=== PATIENT | female | born 1950 | race Caucasian/White ===

== ENCOUNTER → 2017-05-31 | Outpatient (CLI) | payer OTHER | LOC: FIMAGING 09:06 | PROVIDERS: ATTEND Family Medicine | DX: Z12.31 Encounter for screening mammogram for malignant neoplasm of breast (principal); Z80.3 Family history of malignant neoplasm of breast | CPT/HCPCS: G0202 ==

== ENCOUNTER → 2017-06-29 | Outpatient (CLI) | payer OTHER | LOC: FIMAGING 11:42 | PROVIDERS: ATTEND Family Medicine | DX: R60.0 Localized edema (principal); I88.9 Nonspecific lymphadenitis, unspecified ==

== ENCOUNTER → 2017-12-22 | Outpatient (CLI) | payer OTHER ==
[~2017-12-22] MED LIST: DEPO METHYLPREDNISOLONE 40 MG/ML SDV ONE; DEPO METHYLPREDNISOLONE 80 MG/ML SDV ONE; IOPAMIDOL (ISOVUE 370) 100 ML BTL IV ONE; LIDOCAINE 1% 300 MG/30 ML SDV ONE; ROPIVACAINE HCL 150 MG/30 ML INJ ONE
== END ==
LOC: FIMAGING 10:26
PROVIDERS: ATTEND Orthopaedic Surgery
PROC: 3E0U33Z Introduction of Anti-inflammatory into Joints, Percutaneous Approach (ICD-10-PCS; principal; 2017-12-22)
PROC: 3E0U3BZ Introduction of Anesthetic Agent into Joints, Percutaneous Approach (ICD-10-PCS; principal; 2017-12-22)
DX: M25.551 Pain in right hip (principal)
CPT/HCPCS: 20610; J1040; J2795; Q9967; J1030

== ENCOUNTER → 2018-05-04 | Outpatient (CLI) | payer OTHER | LOC: FIMAGING 10:17 | PROVIDERS: ATTEND Orthopaedic Surgery | PROC: 3E0U33Z Introduction of Anti-inflammatory into Joints, Percutaneous Approach (ICD-10-PCS; principal; 2018-05-04) | DX: M16.11 Unilateral primary osteoarthritis, right hip (principal) | CPT/HCPCS: 20610; 77002; J1040; J2795; Q9967; J1030 ==

== ENCOUNTER → 2018-05-31 | Outpatient (CLI) | payer OTHER | LOC: FIMAGING 13:07 | PROVIDERS: ATTEND Family Medicine | DX: Z12.31 Encounter for screening mammogram for malignant neoplasm of breast (principal); Z80.3 Family history of malignant neoplasm of breast ==

== ENCOUNTER 2018-08-09 05:36 | Inpatient (IN) | payer OTHER ==
[2018-08-09] MEDS ORDERED: DEXAMETHASONE 4 MG/ML VIAL IVP ONE (05:52)
[2018-08-09] MEDS ORDERED: FAMOTIDINE 20 MG TAB PO ONE (05:52)
[2018-08-09] MEDS ORDERED: ceFAZolin 2 GM/DEXTROSE 100 ML IV ONE (05:52)
[2018-08-09] MEDS ORDERED: ONDANSETRON 4 MG/2 ML VIAL IVP ONE (05:52)
[2018-08-09] MEDS ORDERED: GABAPENTIN 300 MG CAP PO ONE (05:52)
[2018-08-09] MEDS ORDERED: ACETAMINOPHEN 325 MG TAB PO ONE (05:52)
[2018-08-09] MEDS ORDERED: LIDOCAINE 1% 2 ML INJ ID PRN (05:53)
[2018-08-09] MEDS ORDERED: LR 1,000 ML IV ONE (05:53)
[2018-08-09] MEDS ORDERED: TRANEXAMIC ACID 1,000 MG in NS 100 ML IV ONE (06:00)
[2018-08-09] MEDS ORDERED: ROPIVACAINE 0.2% 80 MG, EPINEPHrine 0.2 MG, KETOROLAC TROMETHAMINE 30 MG in SYRINGE 0 ML IU ONE (06:00)
[2018-08-09] MEDS ORDERED: TRANEXAMIC ACID 3,000 MG in NS (SYRINGE) 50 ML IRR ONE (06:00)
[2018-08-09] MEDS ORDERED: POVIDONE-IODINE 20 ML in SODIUM CL IRRIG SOLUTION 500 ML IRR ONE (06:00)
[2018-08-09] MEDS ORDERED: ceFAZolin 1 GM/5 ML SYR ONE (06:55)
[2018-08-09] MEDS ORDERED: TRANEXAMIC ACID 3,000 MG/50 ML BAG IRR ONE (06:55)
[2018-08-09] MEDS ORDERED: MIDAZOLAM 2 MG/2 ML VIAL ONE (07:01)
--- NOTE | 2018-08-09 07:04 | PDHPUP ---
History & Physical Update H&P update statement: This history and physical update is based on an assessment of the patient which was completed after admission or registration (within 24 hours), but prior to the surgery/procedure. H&P update: H&P reviewed & patient examined
[2018-08-09] MEDS ORDERED: MIDAZOLAM 2 MG/2 ML VIAL IVP ONE (07:13)
--- NOTE | 2018-08-09 07:13 | PDANEPAE ---
ANE History of Present Illness Right hip DJD, here for R RAKESH ANE Past Medical History - Cardiovascular History Hx Hypertension: No Hx Arrhythmias: No Hx Chest Pain: No Hx Coronary Artery / Peripheral Vascular Disease: No Hx CHF / Valvular Disease: No Hx Palpitations: No - Pulmonary History Hx COPD: No Hx Asthma/Reactive Airway Disease: No Hx Recent Upper Respiratory Infection: No Hx Oxygen in Use at Home: No Hx Sleep Apnea: No Sleep Apnea Screening Result - Last Documented: Negative - Neurologic History Hx Cerebrovascular Accident: No Hx Seizures: No Hx Dementia: No - Endocrine History Hx Diabetes: No - Renal History Hx Renal Disorders: No - Liver History Hx Hepatic Disorders: No - Neurological & Psychiatric Hx Hx Neurological and Psychiatric Disorders: No - Cancer History Hx Cancer: Yes 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 arthritis, has taken celebrex for about 18 years. wears glasses - Chronic Pain History Chronic Pain: Yes (right hip area, left ankle) - Surgical History Prior Surgeries: MOHS procedure on face. pelvic fx repair. right femur fx repair. left arm fx repair. ankle surgery, left. surgery to remove screws from ankle and breezy from hip. cholecystectomy. tubal ligation ANE Review of Systems Review of Systems: - Exercise capacity METS (RN): 4 METS ANE Patient History - Allergies Allergies/Adverse Reactions: No Known Allergies Allergy (Verified 08/01/18 11:17) - Home Medications Home Medications: Acetaminophen [Tylenol ES 500 mg (*)] 2,500 mg PO DAILY PRN 08/01/18 [Last Taken 08/08/18 06:00] Herbals/Supplements -Info Only 1 ea PO DAILY 08/01/18 [Last Taken 07/31/18] celeCOXIB [Celebrex (*)] 200 mg PO BID 08/01/18 [Last Taken 08/08/18 18:30] - Smoking Hx Smoking Status: Never smoked - Family Anes Hx Family Hx Anesthesia Complications: none ANE Labs/Vital Signs - Vital Signs Height: 157.48 cm Weight: 88.451 kg ANE Physical Exam - Airway Neck exam: FROM Mallampati Score: Class 2 Mouth exam: normal dental/mouth exam - Pulmonary Pulmonary: no respiratory distress - Cardiovascular Cardiovascular: regular rate and rhythym - ASA Status ASA Status: I ANE Anesthesia Plan Anesthesia Plan: MAC, spinal
[2018-08-09] MEDS ORDERED: LIDOCAINE 2% 5 ML SDV ONE (07:18)
[2018-08-09] MEDS ORDERED: fentaNYL 100 MCG/2 ML INJ ONE ×2 (07:18→09:48)
[2018-08-09] MEDS ORDERED: BUPIVACAINE/DEXTROSE 7.5MG/ML 2 ML SPINAL AMP SP ONE (07:18)
[2018-08-09] MEDS ORDERED: PROPOFOL/EMULSION 500 MG/50 ML BOTTLE IV ONE ×2 (07:18→08:26)
--- NOTE | 2018-08-09 09:32 | POSTOPPROG ---
Post Op Note Date of Operation: 08/09/18 Surgeon: Ye Ordoñez Pump Runner: Fozia Anesthesiologist: Maribell Anesthesia: GET(General Endotracheal), Spinal Post-op Diagnosis: Right hip severe degenerative arthritis Procedure: Right total hip arthroplasty Inf/Abcess present in the surg proc area at time of surgery?: No EBL: [id number]
[2018-08-09] MEDS ORDERED: PROMETHAZINE HCL 25 MG/ML INJ IVP PRN (09:39)
[2018-08-09] MEDS ORDERED: DIPHENOXYLATE/ATROPINE LOMOTIL 1 TAB PO PRN (09:39)
[2018-08-09] MEDS ORDERED: POLYETHYLENE GLYCOL 3350 17 GM PKT PO PRN (09:39)
[2018-08-09] MEDS ORDERED: BISACODYL 10 MG SUPP PR PRN (09:39)
[2018-08-09] MEDS ORDERED: METOCLOPRAMIDE 10 MG/2 ML VIAL IVP PRN (09:39)
[2018-08-09] MEDS ORDERED: ONDANSETRON 4 MG/2 ML VIAL IVP PRN (09:39)
[2018-08-09] MEDS ORDERED: PROMETHAZINE HCL 25 MG SUPPR PR PRN (09:39)
[2018-08-09] MEDS ORDERED: NS 500 ML IV PRN (09:39)
[2018-08-09] MEDS ORDERED: MAGNESIUM HYDROXIDE 30 ML UDCUP PO PRN (09:39)
[2018-08-09] MEDS ORDERED: CYCLOBENZAPRINE 10 MG TAB PO PRN (09:39)
[2018-08-09] MEDS ORDERED: diphenhydrAMINE 25 MG CAP PO PRN (09:39)
[2018-08-09] MEDS ORDERED: ONDANSETRON DISINTEGRATING 4 MG TAB PO PRN (09:39)
[2018-08-09] MEDS ORDERED: TEMAZEPAM 15 MG CAP PO PRN (09:39)
[2018-08-09] MEDS ORDERED: LACTULOSE 20 GM/30 ML UDCUP PO PRN (09:39)
[2018-08-09] MEDS ORDERED: MEPERIDINE 25 MG/0.5 ML AMP IVP PRN (09:48)
[2018-08-09] MEDS ORDERED: LR 500 ML IV PRN (09:48)
[2018-08-09] MEDS ORDERED: NALOXONE HCL 0.4 MG/ML INJ IVP PRN (09:48)
[2018-08-09] MEDS: fentaNYL 100 MCG/2 ML INJ IVP PRN ×4 (09:50→10:06)
--- NOTE | 2018-08-09 09:50 | POSTANESTH ---
Post Anesthetic Evaluation Cardiovascular Status: Normal, Stable Respiratory Status: Normal, Stable Level of Consciousness/Mental Status: Can Participate in Eval Pain Control: Adequate, Prn Tx Ordered Nausea/Vomiting Control: Adequate, Prn Tx Ordered Complications Possibly Related to Anesthesia: None Noted (moving bilateral lower extrem, complianing of pain on presentation in PACU that was easily controlled with standard orders. Spinal largely left sided and converted to GA with LMA without complicaiton as documented in anesthetic record)
[2018-08-09] MEDS ORDERED: LR 1,000 ML IV SCH (10:00)
[2018-08-09] MEDS ORDERED: HYDROmorphONE/DILAUDID 2 MG/ML INJ ONE (10:14)
[2018-08-09] MEDS: HYDROmorphONE/DILAUDID 2 MG/ML INJ IVP PRN ×2 (10:17→10:30)
--- NOTE | 2018-08-09 10:37 | GOP ---
DATE OF OPERATION: 08/09/2018 SURGEON: Ye Ordoñez MD VENEER STAPLER: LEYDA Ocampo. Manny Perez CFA. ANESTHESIA: An attempted spinal anesthetic followed by general anesthesia. ANESTHESIOLOGIST: Tami Renya DO. PREOPERATIVE DIAGNOSIS: 1. Right hip severe degenerative arthritis. 2. Obesity. POSTOPERATIVE DIAGNOSIS: 1. Right hip severe degenerative arthritis. 2. Obesity. PROCEDURE PERFORMED: A right total hip arthroplasty. FINDINGS: DESCRIPTION OF PROCEDURE: The patient was given 2 g of IV Ancef preoperatively within 60 minutes of surgery. She also received 1000 mg of IV tranexamic acid. She was placed on the operating room tabl e, and Dr. Reyna attempted spinal anesthesia. She ended up with an incomplete spinal and then had to have general anesthesia. A Lua catheter was not used. She wore a PAWEL stocking and SCD on the non operative leg. She was rolled to the left lateral decubitus position. The position was secured with the pegboard table attachment. An axillary roll was used, and all pressure points were carefully pa dded. She was very bulky around the hips and thighs and that made positioning difficult. I was care ful to lock her pelvis in a vertical position. Her perineum was isolated with plastic adhesive drape s. Her right hip and right lower extremity were prepped with ChloraPrep. They were draped free usin g sterile sheets, stockinette, and Ioban plastic drape. The [employer] time-out was performed to verify the correct surgical side and site and the correct patient identity. The [place] time-out was also performed. I made a 7-inch straight oblique posterolateral hip skin incision. She had had a previous intramedul gregor nail fixation of a right femoral shaft fracture 15 or 16 years ago. The hardware had been remov ed about 12 years ago. She had 2 incisions on the lateral hip and buttocks area. Neither one of the m were ideally positioned for the incision I needed for her total hip. I made a 3rd incision between the two. There was adequate skin bridge for the incision. Subcutaneous tissues were sharply divide d, and hemostasis was obtained using electrocautery. She had a 2-3 inch layer of subcutaneous fat. Her fascia wanda was identified and split along the axis of its fibers. I curved posteriorly and prox imally, and split the fascia of the gluteus radha and bluntly split the muscle fibers in line with their orientation. The Charnley self-retaining retractor was inserted. Her fascia wanda was quite ti ght. Her sciatic nerve was imbedded in some posterior scar tissue from her previous 2 operations. I was careful to protect that area, but I did not make any attempt to expose the nerve. The external rotators and the posterior hip capsule were scarred. I divided them as a combined layer at the base of the femoral neck. They were tagged and reflected posteriorly. The fluid within the hip joint loo ked normal. I took a culture of the fluid for aerobic and anaerobic organisms. A smooth 1/8-inch Steinmann pin was inserted vertically into the ilium, superior to the acetabulum. A 1/8-inch drill bit was inserted vertically into the greater trochanter and parallel to the first pi n. The distance between the two was measured for leg length reference. Her femoral head was dislocat ed posteriorly. Severe degenerative changes were present. The femoral neck was osteotomized at the appropriate level and inclination. I was careful to preserve all the posterior capsule and most of the anterior capsule. The remnant of her damaged labrum was excised. I prepared the femur first. This allowed me to professor of management the amount of natural femoral neck anteversion. This, in turn, later allowed me to determine the correct amount of cup anteversion. She had about 15 degrees of natural femoral neck anteversion. The canal was opened laterally with the box chisel. I broached sequentially up to a size 4. I used a Carlos Accolade II high offset broach as a trial stem. I was careful to lateralize adequately. Appropriate retractors were inserted to expose her acetabulum. The acetabulum was reamed sequentiall y to 53 mm. I selected the 54 mm Lansford Trident Tritanium cluster-hole hemispherical shell. This w as tapped securely into place in the proper degree of inclination anteversion. I used the transverse acetabular ligament and other acetabular bony landmarks to help me properly orient the cup. I performed a series of trial reductions to determine length and stability. I concluded that the siz e 4 stem with high offset with the -2.5 mm neck length and a 36 mm head gave me the proper combinatio n of appropriate length and good anterior and posterior stability. I took an intraoperative x-ray. Because of her size, it was difficult to get a good AP pelvis x-ray. However, I could see that there was good sizing and positioning of the acetabular component and femoral stem. Leg length looked darnell ropriate. I recognized that I was lengthening her by 2 or 3 mm. However, I felt this was necessary in order to achieve good stability. I then went back and put in a single 30 mm screw through the Tritanium shell. The 0 degree liner was then inserted and tapped securely into place. The Carlos Accolade II stem in a size 4 with high of fset was tapped securely into place and was a very tight fit. I did 1 final trial reduction and conf irmed that the -2.5 mm neck length with a 36 mm head was the proper combination. The Carlos Biolox Delta ceramic head with an outside diameter of 36 mm and a neck length of -2.5 mm was tapped securely onto the clean trunnion. Her acetabulum was irrigated and cleaned, and the hip was reduced 1 final time. She had excellent anterior and posterior stability. 40 mL of the joint anesthetic cocktail were injected into the capsule, the deep musculature, and subc utaneous tissues around the skin edges. The joint was thoroughly irrigated 1 final time with a dilut e Betadine solution. 50 cc of tranexamic acid solution was irrigated into the joint and left in plac e. The combined layer of external rotator and posterior hip capsule was repaired with #2 FiberWire sutur es through drill holes in the greater trochanter. Her external rotators and the capsule were quite s carred and thinned from her previous trauma and surgery. Her fascia wanda was closed first with 2 int errupted [id number] #2 FiberWire sutures followed by a running #2 barbed Ethicon Stratafix PDO s uture. Subcutaneous tissues were closed with a running 0 barbed Ethicon Stratafix Monoderm suture as well as interrupted 2-0 Monocryl sutures. The skin was closed with a running 3-0 barbed Ethicon Str atafix Monoderm subcuticular suture. The skin edges were reapproximated and sealed with Dermabond gl ue. The wound was covered with a large piece of waterproof sterile Mepilex surgical dressing. The s acral Mepilex dressing was also applied. A long leg PAWEL stocking and SCD were applied to the operative leg. She wore a stocking and SCD on th e opposite leg during the procedure. An abduction pillow was placed between her knees. She was awak ened from anesthesia and rolled to the supine position on her [facility]. She was taken to PACU in satisfactory condition. There were no recognized intraoperative complications. The estimated blood loss was about 400 mL. The sponge and needle count was correct on 2 occasions. T he surgery was complicated because of her size. I used a Lansford Tritanium Trident II hemispherical cluster-hole shell with an outside diameter of 54 mm. I inserted a single 30 mm supplemental screw. The liner was a Carlos 0-degree highly cross-li nked liner with an inside diameter of 36 mm. The femoral component was a press-fit Lansford high-offs et Accolade II stem and size 4. The femoral head was a Carlos Biolox Delta ceramic head with a -2.5 mm neck length and a 36 mm outside diameter. Arturo Verma and Manny Perez acted as surgical assistants. Their assistance was a medical necess ity for safe completion of the procedure. Copy requested to: LEYDA Thacker [facility] Manny Perez [facility] /[id number]/MODL
[2018-08-09] MEDS: oxyCODONE IR 5 MG TAB PO PRN ×3 (11:07→18:40)
--- NOTE | 2018-08-09 11:15 | PDMN ---
Medical Necessity Medical necessity: Pt meets IP criteria per and [facility] [place] [facility] S-560 (Hip Arthroplasty) ; Medicare IP only procedure.
[2018-08-09] MEDS: ACETAMINOPHEN 325 MG TAB PO SCH ×2 (12:03→17:44)
[2018-08-09] MEDS: KETOROLAC 15 MG/1 ML SDV IVP SCH ×2 (12:04→17:45)
[2018-08-09] MEDS: ceFAZolin 2 GM/DEXTROSE 100 ML IV SCH ×2 (14:45→21:21)
[2018-08-09] MEDS: ASPIRIN 325 MG TAB PO SCH (21:21)
[2018-08-09] MEDS: FAMOTIDINE 20 MG TAB PO SCH (21:21)
[2018-08-09] MEDS: SENNOSIDES/DOCUSATE SODIUM TAB PO SCH (21:21)
[2018-08-10] MEDS: KETOROLAC 15 MG/1 ML SDV IVP SCH ×2 (00:09→06:12)
[2018-08-10] MEDS: ACETAMINOPHEN 325 MG TAB PO SCH ×4 (00:09→18:24)
--- NOTE | 2018-08-10 07:32 | SOAPPROG ---
SOAP Progress Note Assessment/Plan: Assessment: Afebrile. Awake and alert. Moderate pain. She has been using oxycodone. She is having postural hypotension when she gets up. Her dressing is dry. Postop H&H are good. Postop films look excellent. Sciatic nerve intact. Plan: Continue physical therapy and efforts at walking. Discharge later today if she is stable and able to complete her physical therapy parameters. She will go to outpatient physical therapy next week. 08/10/18 07:30 Objective: Vital Signs Temp Pulse Resp BP Pulse Ox 37.0 C 61 16 110/54 L 94 08/10/18 05:21 08/10/18 05:21 08/10/18 05:21 08/10/18 05:21 08/10/18 05:21 Microbiology 08/09/18 08:15 Gram Stain - Final Hip - Eswab Laboratory Results 08/10/18 05:21 08/09/18 08/10/18 08/11/18 05:59 05:59 05:59 Intake Total 3225 Output Total 2900 Balance 325 ICD10 Worksheet Patient Problems: Problems Problem Status Onset Osteoarthritis of right hip Acute
--- NOTE | 2018-08-10 07:53 | GDS ---
ADMISSION DIAGNOSIS: Right hip severe degenerative arthritis. DISCHARGE DIAGNOSIS: Right hip severe degenerative arthritis. OPERATION PERFORMED: Right total hip arthroplasty. POSTOPERATIVE COMPLICATIONS: None. CONDITION ON DISCHARGE: Improved. DESCRIPTION OF HOSPITAL COURSE: The patient was admitted to the hospital on the morning of surgery. Her admission CBC, electrolytes, BUN, and creatinine were all normal. The same day, under a combination of Marcaine, spinal, and IV sedation, she underwent a right total hip arthroplasty. Postoperatively, she was treated with multimodal DVT prophylaxis, including aspirin. She had difficulty with postural hypotension when she was first mobilized. This persisted for 24 hr. It was necessary for her to stay an additional night in the hospital. She was seen by Physical Therapy and made slow but steady progress with ambulation and stairs. By the time of discharge, she was afebrile , her wound was dry, and she was independent, walking with a walker. DISPOSITION: She is discharged to home. She will go to Outpatient Physical Therapy. She may progress to full weightbearing on the right as tolerated. Use T.E.D. stockings for 1 week. Use an abduction pillow in bed for 3 weeks. Continue aspirin 325 mg p.o. daily for 21 days. She has prescriptions for Celebrex, tramadol and oxycodone for pain control. I will see her back in the office on 09/04/2018. If there are any problems, she is to call me at the office. /[id number]/MODL MTDD
[2018-08-10] MEDS: SENNOSIDES/DOCUSATE SODIUM TAB PO SCH ×2 (09:36→21:36)
[2018-08-10] MEDS: FAMOTIDINE 20 MG TAB PO SCH ×2 (09:36→21:36)
[2018-08-10] MEDS: FERROUS SULFATE 140 MG TAB.ER PO SCH (09:36)
[2018-08-10] MEDS: ASPIRIN 325 MG TAB PO SCH (09:36)
--- NOTE | 2018-08-10 10:17 | ASMTLACE ---
PAULAE Length of stay for Answers: 2 days current admission Acuity / Level of Answers: Yes Care: Did the patient have an inpatient admission? Comorbidities - select Answers: Opioid dependence all that apply / Chronic pain Other Notes: Hypothyroid # of Emergency department Answers: 0 visits in the last 6 months Social determinants Answers: Mental health diagnosis (anxiety, depression, pers onality disorders, etc.) Score: 13 Date Signed: 08/10/2018 10:16 AM Electronically Signed By:MAGALY Jane
--- NOTE | 2018-08-10 10:18 | ASMTCMCOM ---
CM Note CM Note Notes: Pt had planned OA of hip, resides with spouse. PT rec home/outpatient. Pt to have outpatient PT per MD rec. No CM d/c needs identified. Date Signed: 08/10/2018 10:17 AM Electronically Signed By:MAGALY Jane
[2018-08-10] MEDS: oxyCODONE IR 5 MG TAB PO PRN ×2 (18:38→19:18)
[2018-08-11] MEDS: ACETAMINOPHEN 325 MG TAB PO SCH ×3 (01:05→13:16)
[2018-08-11] MEDS: FAMOTIDINE 20 MG TAB PO SCH (05:32)
--- NOTE | 2018-08-11 07:13 | SOAPPROG ---
SOAP Progress Note Assessment/Plan: Assessment: Afebrile. Awake and alert. Moderate pain. She has been using oxycodone. She is having postural hypotension when she gets up. Her dressing is dry. Postop H&H are good. Postop films look excellent. Sciatic nerve intact. Plan: Continue physical therapy and efforts at walking. Discharge later today if she is stable and able to complete her physical therapy parameters. She will go to outpatient physical therapy next week. 08/10/18 07:30 08/11/18 07:12 Toshia had a persistent postural hypotension yesterday. Late yesterday afternoon she was able to sit up in the chair without difficulty. Moderate pain. She is using oxycodone. Her H&H is good. Her blood pressure is stable. Plan: Continue physical therapy today for ambulation and stairs. If she is stable she should be able to go home this afternoon. Objective: Vital Signs Temp Pulse Resp BP Pulse Ox 37.1 C 68 16 119/63 94 08/11/18 00:00 08/11/18 00:00 08/11/18 00:00 08/11/18 00:00 08/11/18 00:00 Microbiology 08/09/18 08:15 Gram Stain - Final Hip - Eswab Laboratory Results 08/11/18 05:35 08/10/18 08/11/18 08/12/18 05:59 05:59 05:59 Intake Total 3225 600 Output Total 2900 3800 Balance 325 -3200 ICD10 Worksheet Patient Problems: Problems Problem Status Onset Osteoarthritis of right hip Acute
[2018-08-11] MEDS: SENNOSIDES/DOCUSATE SODIUM TAB PO SCH (09:55)
[2018-08-11] MEDS: ASPIRIN 325 MG TAB PO SCH (09:55)
[2018-08-11] MEDS: FERROUS SULFATE 140 MG TAB.ER PO SCH (09:55)
[2018-08-11] MEDS: oxyCODONE IR 5 MG TAB PO PRN ×2 (09:56→14:15)
[2018-08-11 12:07] VITALS: BP 136/65
--- NOTE | 2018-08-11 14:59 | PDIAF ---
- Diagnosis Diagnosis: R hip OA Code Status: Full Code - Medication Management Discharge Medications: electronically signed and located in the Home Medication List. PIC Care - Routine: N/A - Orders Services needed: Home Care, Physical Therapy, Occupational Therapy Home Care Face to Face: I certify that this patient was under my care and that I had the required [id number] encounter meeting the encounter requirements on the discharge day. My findings support the fact that the patient is homebound as defined in Home Care Face to Face Continued: CMS Chapter 7 Medicare Benefits Manual 30.1.1 , The condition of the patient is such that there exists a normal inability to leave home and consequently, leaving home would require a considerable and taxing effort. Diet Recommendation: no restrictions on diet Diet Texture: Regular Texture Diet Lua: Not applicable Gavino Stockings Discontinue Date: 1 week Wound Care Instructions: keep clean and dry. You may shower. Activity/Weight Bearing Restrictions: as tolerated. - Follow Up Care Current Providers and Referrals: Asa Chilel MD [Primary Care Provider] - Ye Ordoñez MD [Medical Doctor] - 09/04/18
--- NOTE | 2018-08-11 15:19 | ASMTCMCOM ---
CM Note CM Note Notes: Today OT/PT strongly rec HHC. Pt medically stable for d/c with [facility], referral given to Judy. Orders to be obtained via [employer]. Date Signed: 08/11/2018 03:19 PM Electronically Signed By:MAGALY Jane
== END 2018-08-11 15:05 | disposition home health service (06) | DRG 470 ==
LOC: F3N 05:36 → OBSVTOIN 09:40 → F3N 11:00
PROVIDERS: ADMIT Orthopaedic Surgery; ATTEND Orthopaedic Surgery
PROC: 0SR904Z Replacement of Right Hip Joint with Ceramic on Polyethylene Synthetic Substitute, Open Approach (ICD-10-PCS; principal; 2018-08-09 07:15)
DX: M16.11 Unilateral primary osteoarthritis, right hip (principal); E78.00 Pure hypercholesterolemia, unspecified; M81.0 Age-related osteoporosis without current pathological fracture; E66.9 Obesity, unspecified; Z68.35 Body mass index [BMI] 35.0-35.9, adult
CPT/HCPCS: 97116-GP; 97161-GP; 97166-GO; 97530-GP; 97535-GO; C1713; G8978-GP-CL; G8979-GP-CI; G8980-GP-CJ; G8987-GO-CJ; G8988-GO-CI; G8989-GO-CI; J0171; J0690; J1100; J1170; J1885; J2250; J2270; J2405; J2704; J2795; J3010